=== PATIENT | male | born 1975 | race African-American/Black ===

== ENCOUNTER 2019-07-23 10:33 | Emergency (ER) | payer OTHER ==
[~2019-07-23] VITALS: Ht 165.1 cm; Wt 81.6 kg
[2019-07-23 10:44] VITALS: TEMP 97.7
[2019-07-23 11:51] VITALS: BP 126/82
== END 2019-07-23 11:51 | disposition home or self-care (01) ==
LOC: ED 10:33
DX: M25.562 Pain in left knee (principal); M25.561 Pain in right knee
CPT/HCPCS: 99282; 99283